=== PATIENT | female | born 1995 | race Caucasian/White ===

== ENCOUNTER 2024-09-15 23:26 | Emergency (ER) | payer BC, SELFPAY ==
[2024-09-15 23:38] VITALS: BP 160/97
[2024-09-16 05:09] VITALS: BP 152/102
[2024-09-16] MEDS: TYLENOL 1000 MG PO (05:10)
[2024-09-16 06:40] VITALS: BP 124/92
--- NOTE | 2024-09-16 06:54 | ED.GENMED ---
History of Present Illness
General
Chief Complaint: Foreign Body Removal
Source: patient
Time Seen by Provider: 09/16/24 06:52
History of Present Illness
History of Present Illness:
29-year-old female presents to the emergency room complaining of foreign body in her left foot. Patient was walking around without shoes and stepped on a sewing needle. She believes the tip of the sewing needle broke off and is embedded in her
forefoot. She indicates the area to be just proximal to the third toe plantar surface.
Phy Exam
Physical Exam
Physical Exam:
General: Awake, Alert, Oriented X3. No acute distress.
Vitals: unremarkable
Head: Atraumatic
Eyes: Pupils equal, EOMI
Throat: Airway intact, no exudates
Neck: Trachea midline
Neuro: Nonfocal
Skin: Warm, dry, no rash
Extremities: pulses equal b/l, no edema. Puncture wound noted plantar surface of the left foot
Course
Orders/Labs/Results
Orders:
Orders
09/16/24 05:07
Acetaminophen [Tylenol] 1,000 mg .ROUTE .STK-MED ONE
09/16/24 05:10
Acetaminophen [Tylenol] 1,000 mg PO NOW STA
09/16/24 06:44
Foot, Left 3 View [CR Foot - Left Min 3 Views] Urgent
Comment: base of 2nd toe
Reason For Exam: needle broke off in L foot, plantar area,
09/16/24 08:49
Cephalexin Monohydrate [Keflex] 500 mg PO NOW STA
Vital Signs
Initial and Last Documented VS:
Initial Vital Signs
Temp Pulse Resp BP Pulse Ox
98.3 F 97 20 160/97 100
09/15/24 23:38 09/15/24 23:38 09/15/24 23:38 09/15/24 23:38 09/15/24 23:38
Last Documented Vital Signs
Temp Pulse Resp BP Pulse Ox
97.6 F 72 20 131/85 99
09/16/24 09:11 09/16/24 09:11 09/16/24 09:11 09/16/24 09:11 09/16/24 09:11
Procedures
Foreign Body Removal-Skin
Wound explored and foreign body removed?: Yes
Anesthesia: 1%lidocaine w/epinephrine
Foreign body removed using: forceps and incision
Foreign body removed: completely
MDM/Problems Addressed
Differential Diagnosis Includes:
Retained foreign body, simple puncture wound, bony injury
MDM/Problems Addressed:
Patient states she stepped on a sewing needle. X-ray confirms the presence of a piece of the needle in the subcutaneous tissue. Does not appear to be any bony involvement. After instilling 1 cc of 1% lidocaine with epi I was able to make a small
incision and remove the foreign body. Pain was immediately improved. The piece of the needle came out in 1 piece.
*Radiology
Radiology exam reviewed: preliminary read by ED provider (Foreign body noted in the subcutaneous tissue of the forefoot)
*Pulse Oximetry
Patient hypoxic: no
*Critical Care Note
Total Time (30-74mins, 75-104mins- exclusive of procedures): Not Applicable
ED Attending Note
-
Portions of this chart may have been created with voice recognition software.� Occasional wrong word or��sound alike� substitutions may have occurred due to the inherent limitations of voice recognition software.
Discharge Plan
Departure
Patient Disposition: Home (Routine Discharge)
Date of Disposition: 09/16/24
Time of Disposition: 08:46
Patient with high blood pressure during this ER visit?: No
Discharge Problem:
Foreign body in foot, left
Instructions: Foreign Body in Skin (DC)
Prescriptions:
New
cephalexin 500 mg capsule
500 mg PO BID Qty: 10 0RF
Referrals:
Eva Ramirez DPM [Active] -
NONE,* [Family Provider] -
Interventions
Interventions:
*Risk Screen - Suicide Last Done: 09/15/24 23:38
*General Assessment Last Done: 09/15/24 23:38
*Neglect/Abuse Screening Last Done: 09/15/24 23:38
ED- Fall Risk Assessment Last Done: 09/16/24 06:38
*ED COVID-19 Vaccine History Last Done: 09/16/24 09:11
*Nursing Disposition Last Done: 09/16/24 09:12
Discharge Date and Time
Discharge Date/Time: 09/16/24 09:13
Print Language: TAJIK
--- NOTE | 2024-09-16 07:53 | EDRN ---
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
closely
[2024-09-16] MEDS: KEFLEX 500 MG PO (09:00)
[2024-09-16 09:11] VITALS: BP 131/85; BMI 26.7
== END 2024-09-16 09:13 | disposition home or self-care (01) ==
LOC: EMR 23:26
PROVIDERS: EMERGENCY PHYSICIAN Emergency Medicine
DX: S90.852A Superficial foreign body, left foot, initial encounter (principal); W45.8XXA Other foreign body or object entering through skin, initial encounter; W26.8XXA Contact with other sharp object(s), not elsewhere classified, initial encounter
CPT/HCPCS: 99283; 10120; 73630